=== PATIENT | male | born 1970 | race Caucasian/White ===

== ENCOUNTER 2016-09-16 19:31 | Emergency (ER) | payer OTHER ==
[2016-09-16] MEDS ORDERED: diazePAM 5 MG TABLET PO STA (19:49)
[2016-09-16] MEDS ORDERED: KETOROLAC 60 MG/2 ML VIAL IM STA (19:49)
--- NOTE | 2016-09-16 19:52 | ED Physician Documentation ---
PD HPI BACK INJURY - Stated complaint Stated Complaint: BACK PX - History obtained from History obtained from: Patient - History of Present Illness Type of injury: Other (He was sitting on the ground reaching for something today when his left paralumbar back muscle spasms. He has had this before. There is no radiation. No relief with Robaxin. No weakness, numbness, or tingling in the extremities, no saddle anesthesia, no fever, no incontinence.) Review of Systems Constitutional: denies: Fever, Chills GI: denies: Abdominal Pain, Nausea, Vomiting : denies: Frequency PD PAST MEDICAL HISTORY - Past Medical History Cardiovascular: None Respiratory: None Neuro: None Endocrine/Autoimmune: None GI: GERD : None HEENT: None Psych: Depression Musculoskeletal: Chronic back pain Derm: None - Past Surgical History Past Surgical History: Yes HEENT: Tonsil/Adenoidectomy - Present Medications Home Medications: Ambulatory Orders Medication Instructions Recorded Confirmed DULoxetine [Cymbalta] 60 mg PO DAILY 04/01/13 09/16/16 HYDROcod/ACETAM 5/325 [[place] 5/325] 1 - 2 ea PO Q6H PRN #15 tablet 09/16/16 - Allergies Allergies/Adverse Reactions: Allergies Allergy/AdvReac Type Severity Reaction Status Date / Time No Known Drug Allergies Allergy Verified 09/16/16 19:47 - Social History Does the pt smoke?: No Smoking Status: Never smoker Does the pt drink ETOH?: Yes Does the pt have substance abuse?: No - Immunizations Immunizations are current?: Yes - POLST Patient has POLST: No PD ED PE NORMAL - Vitals Vital signs reviewed: Yes - General General: Alert and oriented X 3, No acute distress - Neck Neck: Supple, no meningeal sign, No bony TTP - Abdomen Abdomen: Soft, Non tender - Back Back: Other (Tender with obvious spasm to the left paralumbar muscles without midline tenderness) - Extremities Extremities: Other (The patient has equal and normal Achilles and patellar reflexes bilaterally. Normal sensation in all areas of the legs. Patient denies saddle anesthesia. Normal strength in flexion-extension at the ankles, knees, and flexion of the hips.) - Neuro Neuro: Alert and oriented X 3, Normal speech Results - Vitals Vitals: Vital Signs - 24 hr 09/16/16 19:35 Temperature 36.6 C Heart Rate 71 Respiratory 20 Rate Blood Pressure 117/80 O2 Saturation 97 Oxygen O2 Source Room air PD MEDICAL DECISION MAKING - ED course ED course: This patient has seemingly uncomplicated musculoskeletal back pain. The patient has no "red flags." Specifically denies IV drug use, fevers, incontinence, saddle anesthesia. Spinal epidural abscess was considered, given that the patient has no fever, is not diabetic, has no spinal tenderness, does not use IV drugs, and has no bilateral neurologic symptoms, the diagnosis of spinal epidural abscess is considered exceedingly unlikely. The [place] prescription monitoring program was queried with regard to this patient. No concerning findings were found. Departure - Departure Disposition: Home, Self Care Clinical Impression: Back spasm, Strain of back muscle Condition: Good Record reviewed to determine appropriate education?: Yes Instructions: ED Low Back Pain Injury Prescriptions: HYDROcod/ACETAM 5/325 [[place] 5/325] 1 - 2 ea PO Q6H PRN #15 tablet PRN Reason: Pain Comments: Call your doctor to arrange a follow-up appointment, make the next available appointment. In the interim, return anytime if worse or if new symptoms develop. Do not drink or drive while taking narcotic pain medication. Note that many narcotic pain relievers also contain Tylenol/acetaminophen. Please ensure that your total dose of acetaminophen from all sources does not exceed 3 g (3000 mg) per day. You may get constipated while on this medication. Take a stool softener such as Colace twice a day while you are on it. Also add an [id number] laxative such as senna or MiraLAX on any day that you do not have a bowel movement. If you received a narcotic pain medication or sedative while in the emergency department, do not drive for the next 24 hours.
[2016-09-16] MEDS ORDERED: diazePAM 5 MG TABLET PO ONE (20:00)
[2016-09-16] MEDS ORDERED: KETOROLAC 60 MG/2 ML VIAL ONE (20:00)
[2016-09-16] MEDS ORDERED: HYDROcod/ACET 5/325 Prepack 6 PO STA (20:42)
[2016-09-16] MEDS ORDERED: HYDROcod/ACET 5/325 Prepack 6 PO ONE (20:47)
[2016-09-16 20:57] VITALS: BP 102/78
== END 2016-09-16 20:46 | disposition home or self-care (01) ==
LOC: ED 19:31
DX: S39.012A Strain of muscle, fascia and tendon of lower back, initial encounter (principal); X50.0XXA Overexertion from strenuous movement or load, initial encounter; M62.830 Muscle spasm of back
CPT/HCPCS: 96372; 99282; 99283; A9270

== ENCOUNTER 2017-03-16 22:01 | Emergency (ER) | payer OTHER ==
[2017-03-16] MEDS ORDERED: KETOROLAC 60 MG/2 ML VIAL IM STA (22:13)
[2017-03-16] MEDS ORDERED: CYCLOBENZAPRINE 10 MG TABLET PO STA (22:13)
[2017-03-16] MEDS ORDERED: DEXAMETHASONE 10 MG/ML VIAL PO STA (22:13)
[2017-03-16] MEDS ORDERED: oxyCODONE/ACET 5/325 Prepack 4 PO STA (22:13)
[2017-03-16] MEDS ORDERED: oxyCOD/ACETAMIN 5 MG/325 MG TABLET PO STA (22:13)
[2017-03-16] MEDS ORDERED: CYCLOBENZAPRINE 10 MG Prepack 2 PO STA (22:13)
--- NOTE | 2017-03-16 22:14 | ED Physician Documentation ---
PD HPI BACK PAIN - Stated complaint Stated Complaint: BACK PX - Chief complaint Chief Complaint: Back Pain - History obtained from History obtained from: Patient - History of Present Illness Timing - onset: Today Timing - details: Abrupt onset Location: Lower, Right Quality: Pain, Spasm, Similar to prior episodes Associated symptoms: No: Fever, Weakness, Incontinent of urine, Unable to urinate Improves with: Rest Worsened by: Movement, Lifting, Palpation Contributing factors: Lifting Similar symptoms before: Work up / diagnostics, Treatment Recently seen: Not recently seen - Additional information Additional information: Patient is a 45 year old male with a history of low back pain and muscle spasms who is presenting to the emergency department for low back pain. patient states that today he was lifting a box from [employer] and moving it around his garage and thats what set off his spasm. patient denies any trauma and reports that this is similar to other episodes. Review of Systems Constitutional: denies: Fever, Chills Eyes: reports: Reviewed and negative Ears: reports: Reviewed and negative Nose: reports: Reviewed and negative Throat: reports: Reviewed and negative Cardiac: reports: Reviewed and negative Respiratory: reports: Reviewed and negative GI: denies: Nausea, Vomiting : denies: Unable to Void, Incontinent Skin: denies: Rash, Lesions Musculoskeletal: reports: Back pain Neurologic: denies: Generalized weakness, Focal weakness, Numbness Immunocompromised: denies: Immunocompromised PD PAST MEDICAL HISTORY - Past Medical History Cardiovascular: None Respiratory: None Neuro: None Endocrine/Autoimmune: None GI: GERD : None HEENT: None Psych: Depression Musculoskeletal: Chronic back pain Derm: None - Past Surgical History Past Surgical History: Yes HEENT: Tonsil/Adenoidectomy - Present Medications Home Medications: Ambulatory Orders Medication Instructions Recorded Confirmed DULoxetine [Cymbalta] 60 mg PO DAILY 04/01/13 09/16/16 HYDROcod/ACETAM 5/325 [[place] 5/325] 1 - 2 ea PO Q6H PRN #15 tablet 09/16/16 Cyclobenzaprine [Flexeril] 10 mg PO TID PRN #10 tablet 03/16/17 - Allergies Allergies/Adverse Reactions: Allergies Allergy/AdvReac Type Severity Reaction Status Date / Time No Known Drug Allergies Allergy Verified 03/16/17 22:11 - Social History Does the pt smoke?: No Smoking Status: Never smoker Does the pt drink ETOH?: Yes Does the pt have substance abuse?: No - Immunizations Immunizations are current?: Yes - POLST Patient has POLST: No PD ED PE NORMAL - Vitals Vital signs reviewed: Yes - General General: Alert and oriented X 3 - HEENT HEENT: Atraumatic, PERRL - Neck Neck: Supple, no meningeal sign - Cardiac Cardiac: RRR - Respiratory Respiratory: No respiratory distress - Derm Derm: Normal color, No rash - Extremities Extremities: No deformity, Normal ROM s pain - Neuro Neuro: Alert and oriented X 3, No motor deficit, No sensory deficit, Normal speech - Psych Psych: Normal mood PD ED PE EXPANDED - General General: Alert, In Pain - Back Back: Soft tissue tenderness (tednerness to palpation of right lower paraspinal muscles) Results - Vitals Vitals: Vital Signs - 24 hr 03/16/17 03/16/17 22:10 23:00 Temperature 36.3 C L Heart Rate 60 56 L Respiratory 17 18 Rate Blood Pressure 145/100 H 134/62 H O2 Saturation 99 98 Oxygen O2 Source Room air PD MEDICAL DECISION MAKING - ED course Complexity details: reviewed old records, reviewed results, re-evaluated patient , considered differential, d/w patient ED course: Patient was seen and examined at bedside. Patient was well appearing and had no signs of spinal cord injury. Patient was treated with toradol, decadron, percocet and flexeril with good relief. patient required no further testing or inpatient work up and was stable for discharge with outpatient follow up. Departure - Departure Disposition: 01 Home, Self Care Clinical Impression: Strain of back muscle Condition: Good Instructions: ED Low Back Pain Injury Follow-Up: Jarad Francois MD [Primary Care Provider] - As Needed Prescriptions: Cyclobenzaprine [Flexeril] 10 mg PO TID PRN #10 tablet PRN Reason: Spasms Comments: Your symptoms today are being caused by a muscle spasm. You should take motrin and tylenol as needed for pain and the flexeril as needed for spasms. You can apply ice or heat. You should stay active and try stretching. You should follow up with your doctor as needed. You may return to the emergency department at any time for new, worsening or uncontrollable symptoms. Discharge Date/Time: 03/16/17 23:00
[2017-03-16 23:00] VITALS: BP 134/62
== END 2017-03-16 23:00 | disposition home or self-care (01) ==
LOC: ED 22:01
DX: S39.012A Strain of muscle, fascia and tendon of lower back, initial encounter (principal); X50.0XXA Overexertion from strenuous movement or load, initial encounter; Y92.015 Private garage of single-family (private) house as the place of occurrence of the external cause
CPT/HCPCS: 96372; 99283; A9270

== ENCOUNTER 2018-04-10 14:38 | Emergency (ER) | payer OTHER ==
[2018-04-10 14:47] VITALS: BP 134/89
--- NOTE | 2018-04-10 14:47 | ED Physician Documentation ---
PD HPI BACK PAIN - Stated complaint Stated Complaint: BACK PX - Chief complaint Chief Complaint: Back Pain - History obtained from History obtained from: Patient - History of Present Illness Timing - onset: Enter time (0), Today Timing - duration: Hours Timing - details: Abrupt onset, Still present Location: Lower, Right Quality: Pain, Spasm, Sharp, Similar to prior episodes Associated symptoms: No: Fever, Weakness, Numbness, Incontinent of urine, Unable to urinate, Hematuria, Incontinent of stool Improves with: Rest, Ice, Position Worsened by: Movement, Lifting, Twisting Contributing factors: Lifting, Twisting Similar symptoms before: Diagnosis (lumbar strain) Recently seen: Not recently seen - Additional information Additional information: 48-year-old male was at work today 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 He states the weight of the object is about 80 pounds and is a 2 man lift and he felt a strain in his right lower back when he went to do this. He has had strain in the similar area previously. He has no other specific complaints. He does not have numbness tingling or paresthesias.He has had these symptoms previously with strain and is done well with treatment. Review of Systems Constitutional: denies: Fever Eyes: denies: Decreased vision Ears: denies: Ear pain Nose: reports: Rhinorrhea / runny nose, Congestion Throat: denies: Sore throat Respiratory: denies: Cough GI: denies: Vomiting : denies: Dysuria Skin: denies: Rash Musculoskeletal: reports: Back pain. denies: Neck pain, Extremity pain Neurologic: denies: Generalized weakness, Focal weakness, Numbness PD PAST MEDICAL HISTORY - Past Medical History Cardiovascular: None Respiratory: None Endocrine/Autoimmune: None GI: GERD : None HEENT: None Psych: Depression Musculoskeletal: Chronic back pain Derm: None - Past Surgical History Past Surgical History: Yes HEENT: Tonsil/Adenoidectomy - Present Medications Home Medications: Ambulatory Orders Medication Instructions Recorded Confirmed DULoxetine [Cymbalta] 60 mg PO DAILY 04/01/13 04/10/18 Cyclobenzaprine [Flexeril] 10 mg PO TID PRN #20 tablet 04/10/18 Hydrocodone/Acetaminophen 1 - 2 each PO Q6H PRN #14 tablet 04/10/18 [Hydrocodon-Acetaminophen 5-325] - Allergies Allergies/Adverse Reactions: Allergies Allergy/AdvReac Type Severity Reaction Status Date / Time No Known Drug Allergies Allergy Verified 04/10/18 14:44 - Social History Does the pt smoke?: No Smoking Status: Never smoker Does the pt drink ETOH?: Yes Does the pt have substance abuse?: No - Immunizations Immunizations are current?: Yes - POLST Patient has POLST: No PD ED PE NORMAL - Vitals Vital signs reviewed: Yes (hypertensive ) - General General: Alert and oriented X 3, No acute distress, Well developed/nourished - HEENT HEENT: Atraumatic, PERRL, EOMI - Respiratory Respiratory: No respiratory distress - Back Back: No CVA TTP, No spinal TTP, Other (There is point tenderness to the lower lumbar spine on the right side. There is no midline tenderness. 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, No motor deficit, No sensory deficit, Normal speech Eye Opening: Spontaneous Motor: Obeys Commands Verbal: Oriented GCS Score: 15 - Psych Psych: Normal mood, Normal affect Results - Vitals Vitals: Vital Signs - 24 hr 04/10/18 14:43 Temperature 36.5 C Heart Rate 71 Respiratory 20 Rate Blood Pressure 134/89 H O2 Saturation 100 Oxygen O2 Source Room air PD MEDICAL DECISION MAKING - ED course Complexity details: reviewed old records, considered differential, d/w patient ED course: 48-year-old male with acute lumbar strain has right lower lumbar spasm and he is administered dexamethasone 10 mg orally and 60 mg of Toradol IM. We will put him back on Flexeril and Vicodin and give him light duty for 1 week. Departure - Departure Disposition: 01 Home, Self Care Clinical Impression: Strain of back muscle Condition: Stable Instructions: ED Low Back Pain Injury Follow-Up: JOSHUA FERRELL DO [Primary Care Provider] - Prescriptions: Cyclobenzaprine [Flexeril] 10 mg PO TID PRN #20 tablet PRN Reason: Spasms Hydrocodone/Acetaminophen [Hydrocodon-Acetaminophen 5-325] 1 - 2 each PO Q6H PRN #14 tablet PRN Reason: pain Forms: Activity restrictions
[2018-04-10] MEDS ORDERED: DEXAMETHASONE 10 MG/ML VIAL PO STA (14:52)
[2018-04-10] MEDS ORDERED: KETOROLAC 60 MG/2 ML VIAL IM STA (14:52)
== END 2018-04-10 15:29 | disposition home or self-care (01) ==
LOC: ED 14:38
DX: S39.012A Strain of muscle, fascia and tendon of lower back, initial encounter (principal); X50.0XXA Overexertion from strenuous movement or load, initial encounter; Y99.0 Civilian activity done for income or pay
CPT/HCPCS: 96372; 99283

== ENCOUNTER 2019-03-23 16:30 | Emergency (ER) | payer OTHER ==
[2019-03-23 16:37] VITALS: BP 146/95
[2019-03-23] MEDS ORDERED: KETOROLAC 60 MG/2 ML VIAL IM STA (16:50)
[2019-03-23] MEDS ORDERED: LIDOCAINE PATCH 5% TOP STA (16:50)
--- NOTE | 2019-03-23 16:52 | ED Physician Documentation ---
PD HPI BACK PAIN - Stated complaint Stated Complaint: BACK PX - Chief complaint Chief Complaint: Back Pain - History obtained from History obtained from: Patient - History of Present Illness Timing - onset: Today Timing - details: Abrupt onset Location: Lower, Left Quality: Pain Associated symptoms: No: Weakness, Numbness, Incontinent of urine, Incontinent of stool Improves with: Position Worsened by: Movement, Twisting Recently seen: Not recently seen - Additional information Additional information: This is a 48-year-old who has had prior use with his lower back was referred to a specialist in [place] who told him that surgery would probably be worse than what he is dealing with. Today he bent over to pull his socks on and the back just "locked up" it is in the left lower he feels better if he gets up and walks around but he took a Flexeril around 2:00 and the pain just not letting up. Is not going down his leg. He had no urinary incontinence. He did not take any of his Motrin at home. He denies abdominal pain or nausea. He did try his TENS unit at home as well. 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 Review of Systems : denies: Incontinent Musculoskeletal: reports: Back pain Neurologic: reports: Other (No pain radiating down the legs) PD PAST MEDICAL HISTORY - Past Medical History Past Medical History: Yes Cardiovascular: None Respiratory: None Endocrine/Autoimmune: None GI: GERD : None HEENT: None Psych: Depression Musculoskeletal: Chronic back pain Derm: None - Past Surgical History Past Surgical History: Yes HEENT: Tonsil/Adenoidectomy - Present Medications Home Medications: Ambulatory Orders Medication Instructions Recorded Confirmed DULoxetine [Cymbalta] 90 mg PO DAILY 04/01/13 04/10/18 Cyclobenzaprine [Flexeril] 10 mg PO TID PRN #20 tablet 04/10/18 Lidocaine Patch 5% [Lidoderm Patch] 1 each TOP DAILY #10 patch 03/23/19 - Allergies Allergies/Adverse Reactions: Allergies Allergy/AdvReac Type Severity Reaction Status Date / Time No Known Drug Allergies Allergy Verified 03/23/19 16:37 - Social History Does the pt smoke?: No Smoking Status: Never smoker Does the pt drink ETOH?: Yes Does the pt have substance abuse?: No - Immunizations Immunizations are current?: Yes - POLST Patient has POLST: No PD ED PE NORMAL - Vitals Vital signs reviewed: Yes - General General: Alert and oriented X 3, Well developed/nourished, Other (He looks uncomfortable sitting is kind of frequently changing position trying to stretch his back out.) - Respiratory Respiratory: No respiratory distress - Abdomen Abdomen: Normal bowel sounds, Soft - Derm Derm: Normal color, Warm and dry, No rash - Extremities Extremities: No edema - Neuro Neuro: Alert and oriented X 3, 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 He has intermittent episodes of pain. He is tried chiropractic treatments in the past that have not been helpful. We gave him an injection of Toradol here today and also put a lidocaine patch on. He will be given a work note to limit lifting to 10 pounds[place] Of encouraged him to restart the ibuprofen, he use the prescription for lidocaine patches if that is helping. He also has Flexeril and methocarbamol that he can take. Departure - Departure Disposition: 01 Home, Self Care Clinical Impression: Acute exacerbation of chronic low back pain Condition: Good Instructions: ED Back Care Tips, ED Sprain Strain Lumbar Follow-Up: JOSHUA FERRELL DO [Primary Care Provider] - Prescriptions: Lidocaine Patch 5% [Lidoderm Patch] 1 each TOP DAILY #10 patch Comments: Use your ibuprofen 800 mg every 8 hours with food. Trial the lidocaine patches to see if that offers any significant relief. Continue with the muscle relaxer Flexeril or methocarbamol if needed. Limit your lifting, twisting, squatting or stooping. Follow-up with your primary care provider for further pain management if you continue to have significant pain. Forms: Activity restrictions Discharge Date/Time: 03/23/19 17:14
== END 2019-03-23 17:14 | disposition home or self-care (01) ==
LOC: ED 16:30
DX: M54.5 Low back pain (principal); G89.29 Other chronic pain
CPT/HCPCS: 96372; 99283; 99284; A9270

== ENCOUNTER 2020-02-05 13:05 | Emergency (ER) | payer OTHER ==
--- NOTE | 2020-02-05 13:59 | ED Physician Documentation ---
History of Present Illness - Stated complaint Stated Complaint: RT SIDE RASH - Chief complaint Chief Complaint: Wound - History obtained from History obtained from: Patient - History of Present Illness Timing: How many days ago (3) - Additonal information Additional information: 49-year-old male presents emergency department with 3 days of a painful, burning, right sided vesicular rash on his abdomen. No recent fevers contact with similar. He does have a history of chickenpox as a child. Review of Systems Constitutional: reports: Reviewed and negative Ears: reports: Reviewed and negative Nose: reports: Reviewed and negative Throat: reports: Reviewed and negative Cardiac: reports: Reviewed and negative Respiratory: reports: Reviewed and negative GI: reports: Reviewed and negative : reports: Reviewed and negative Skin: reports: Rash Musculoskeletal: reports: Reviewed and negative PD PAST MEDICAL HISTORY - Past Medical History Past Medical History: Yes Cardiovascular: None Respiratory: None Endocrine/Autoimmune: None GI: GERD : None HEENT: None Psych: Depression Musculoskeletal: Chronic back pain Derm: None - Past Surgical History Past Surgical History: Yes HEENT: Tonsil/Adenoidectomy - Present Medications Home Medications: Ambulatory Orders Medication Instructions Recorded Confirmed DULoxetine [Cymbalta] 90 mg PO DAILY 04/01/13 04/10/18 Cyclobenzaprine [Flexeril] 10 mg PO TID PRN #20 tablet 04/10/18 Lidocaine Patch 5% [Lidoderm Patch] 1 each TOP DAILY #10 patch 03/23/19 Valacyclovir HCl [Valtrex] 1,000 mg PO TID #21 tablet 02/05/20 - Allergies Allergies/Adverse Reactions: Allergies Allergy/AdvReac Type Severity Reaction Status Date / Time No Known Drug Allergies Allergy Verified 02/05/20 13:17 - Social History Does the pt smoke?: No Smoking Status: Never smoker Does the pt drink ETOH?: Yes Does the pt have substance abuse?: No - Immunizations Immunizations are current?: Yes - POLST Patient has POLST: No PD ED PE EXPANDED - General General: Alert, No acute distress, Well developed/nourished - Cardiac Cardiac: Regular Rate, Regular Rhythm, Radial strong equal, Cap refill < 2 sec - Respiratory Respiratory: Clear to ausultation laurie. No: Distress, Labored - Derm Derm: Vesicles (Clustered vesicles right side of abdomen does not cross midline. T9 dermatome.) Results - Vitals Vitals: Vital Signs - 24 hr 02/05/20 13:09 Temperature 36.8 C Heart Rate 85 Respiratory 17 Rate Blood Pressure 154/53 H O2 Saturation 98 Oxygen O2 Source Room air PD MEDICAL DECISION MAKING - ED course Complexity details: reviewed results ED course: 49-year-old male presents the emergency department for evaluation of 3 days of right-sided painful vesicular rash consistent with shingles. He will be placed on valacyclovir. Pain is well tolerated at this time we will not initiate gabapentin or Neurontin. Routine care avoidance of transfer of infection discussed. Patient will follow up with [facility] Departure - Departure Disposition: Home, Self Care Clinical Impression: Shingles outbreak Qualifiers: Herpes zoster complications: without complications Qualified Code(s): B02.9 - Zoster without complications Condition: Stable Record reviewed to determine appropriate education?: Yes Instructions: ED Shingles Prescriptions: Valacyclovir HCl [Valtrex] 1,000 mg PO TID #21 tablet Comments: The rash in your abdomen is consistent with shingles or varicella infection. This is common in adults who have had chickenpox as a child. Once this outbreak goes away you can get the shingles vaccine through your primary care provider to prevent a recurrence of this. In the short-term I would like you to start taking the valacyclovir 3 times daily for the next week. Shingles is considered contagious until fully crusted or scabbed over. This typically takes 1 to 2 weeks. Avoid scratching or rubbing the blisters as you can transfer infection elsewhere like the eyes or face.
[2020-02-05 14:06] VITALS: BP 148/60
== END 2020-02-05 14:05 | disposition home or self-care (01) ==
LOC: ED 13:05
DX: B02.9 Zoster without complications (principal)
CPT/HCPCS: 99282; 99283

== ENCOUNTER 2020-07-03 21:25 | Emergency (ER) | payer OTHER ==
--- NOTE | 2020-07-03 21:52 | ED Physician Documentation ---
PD HPI LOWER EXT INJURY - Stated complaint Stated Complaint: RT ANKLE INJ - Chief complaint Chief Complaint: Trauma Ext - History obtained from History obtained from: Patient - History of Present Illness PD HPI LOW EXT INJURY LOCATION: Right, Ankle Type of injury: Fall Where injury occurred: Other (rollerbarn) Timing - onset: Enter time (1929), Today Timing - duration: Minutes Timing - details: Abrupt onset, Still present Improved by: Rest, Immobilization Worsened by: Moving, Palpating Associated symptoms: Swelling Contributing factors: No: Anticoagulated, Prior ortho surgery Similar symptoms before: Diagnosis (ankle sprain this seems worse) Recently seen: Not recently seen - Additional information Additional information: 50-year-old male was rollerskating in the roller bar with his daughter when he slipped backwards and fell when he did he twisted his ankle and he heard a loud crack. He knew when this happened that his ankle was broken and he has been unable to bear weight on it since. Comes to the emergency department today with a fractured ankle that happened at about 7:30 PM. Review of Systems Constitutional: denies: Fever Nose: denies: Congestion Throat: denies: Sore throat Cardiac: denies: Chest pain / pressure Respiratory: denies: Dyspnea, Cough, Wheezing GI: reports: Nausea (with the pain). denies: Vomiting Skin: denies: Rash Musculoskeletal: reports: Extremity pain, Joint pain, Joint swelling, Pain with weight bearing. denies: Neck pain, Back pain Neurologic: denies: Generalized weakness, Focal weakness, Numbness PD PAST MEDICAL HISTORY - Past Medical History Past Medical History: Yes Cardiovascular: None Respiratory: None Endocrine/Autoimmune: None GI: GERD : None HEENT: None Psych: Depression Musculoskeletal: Chronic back pain Derm: None - Past Surgical History Past Surgical History: Yes HEENT: Tonsil/Adenoidectomy - Present Medications Home Medications: Ambulatory Orders Medication Instructions Recorded Confirmed DULoxetine [Cymbalta] 90 mg PO DAILY 04/01/13 07/03/20 Escitalopram [Lexapro] 5 mg PO BID 07/03/20 07/03/20 HYDROcod/ACETAM 5/325 [[place] 5/325] 1 - 2 tablet PO Q6H PRN #14 tablet 07/03/20 - Allergies Allergies/Adverse Reactions: Allergies Allergy/AdvReac Type Severity Reaction Status Date / Time No Known Drug Allergies Allergy Verified 07/03/20 21:33 - Social History Does the pt smoke?: No Smoking Status: Never smoker Does the pt drink ETOH?: Yes Does the pt have substance abuse?: No - Immunizations Immunizations are current?: Yes - POLST Patient has POLST: No PD ED PE NORMAL - Vitals Vital signs reviewed: Yes (hpyertensive mild) - General General: Alert and oriented X 3, No acute distress, Well developed/nourished - HEENT HEENT: Atraumatic, PERRL, EOMI - Respiratory Respiratory: No respiratory distress - Derm Derm: Normal color, Warm and dry, No rash - Extremities Extremities: Other (swellling and tenderness medial and posterior. 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 Acute bimalleolar ankle fracture involving the medial and posterior malleolus. Medial clear space is not widened. 2. Medial ankle swelling with small ankle effusion.), EMP read indepedently, See rad report Procedures - Splint (location) right ankle Splint applied by: Tech Type of splint: Fiberglass, Posterior, Stirrup Other: Patient tolerated well, No complications, Neurovascular intact, Good alignment, Crutches provided PD MEDICAL DECISION MAKING - ED course Complexity details: reviewed old records, reviewed results, re-evaluated patient, considered differential, d/w patient, d/w family ED course: 50-year-old male with a rollerskating injury has fractured his right ankle. He has a bimalleolar fracture without much displacement and he does not have shift of the mortise. He is placed into a posterior splint with a stirrup and placed onto crutches. He is given a note for 5 days and instructed to follow-up with orthopedics. His pain is controlled in the emergency department with an injection of Dilaudid 1 mg IM and 4 mg of Zofran sublingual. This provides excellent pain control for the patient to have a splint placed. Departure - Departure Disposition: 01 Home, Self Care Clinical Impression: Bimalleolar fracture of right ankle Qualifiers: Encounter type: initial encounter Fracture type: closed Qualified Code(s): S82.841A - Displaced bimalleolar fracture of right lower leg, initial encounter for closed fracture Condition: Stable Instructions: ED Fx Ankle General Follow-Up: Bunny Mi MD [Provider Admit Priv/Credential] - Prescriptions: HYDROcod/ACETAM 5/325 [[place] 5/325] 1 - 2 tablet PO Q6H PRN #14 tablet PRN Reason: Pain Forms: Activity restrictions Discharge Date/Time: 07/03/20 22:57
[2020-07-03] MEDS ORDERED: ONDANSETRON ODT 4 MG TABLET TL STA (22:04)
[2020-07-03] MEDS ORDERED: HYDROmorphone 1 MG/ML CARPUJECT IM STA (22:04)
[2020-07-03] MEDS ORDERED: HYDROcod/ACET 5/325 Prepack 4 PO STA (22:39)
[2020-07-03 22:46] VITALS: BP 145/109
--- NOTE | 2020-07-03 23:11 | XRAY Report ---
PROCEDURE: Ankle 3 View RT INDICATIONS: injury R ankle/rolled/twisted from roller skating TECHNIQUE: 3 views of the ankle were acquired. COMPARISON: None FINDINGS: Bones: There is a mildly to moderately displaced medial malleolar fracture, with intra-articular invo lvement. There is a moderately displaced posterior malleolar fracture. The distal fibula and lateral malleolus do not appear fractured. The talar dome demonstrates an unremarkable appearance. Ankle mortise is normally aligned. No krystal picious bony lesions. Age-appropriate degenerative changes are seen. Plantar and Achilles calcaneal spurs are seen. Soft tissues: Soft tissue swelling is seen, with a joint effusion. IMPRESSION: Medial malleolar fracture and posterior malleolar fracture. Associated soft tissue swelling, with a joint effusion seen. Note: No significant discrepancy from the preliminary report. Reviewed by: Morro Recinos MD on 07/03/2020 10:10 PM DANIA Approved by: Morro Recinos MD on 07/03/2020 10:10 PM DANIA Station ID: [id number]
== END 2020-07-03 22:57 | disposition home or self-care (01) ==
LOC: ED 21:25
DX: S82.841A Displaced bimalleolar fracture of right lower leg, initial encounter for closed fracture (principal); V00.121A Fall from non-in-line roller-skates, initial encounter; Y93.51 Activity, roller skating (inline) and skateboarding; Y92.331 Roller skating rink as the place of occurrence of the external cause
CPT/HCPCS: 29515; 73610; 96372; 99283; 99284; J1170; Q0162

== ENCOUNTER 2020-07-08 09:16 | Outpatient (CLI) | payer OTHER ==
--- NOTE | 2020-07-08 10:09 | XRAY Report ---
PROCEDURE: Tib/Fib RT INDICATIONS: DISPLACED FRACTURE OF RIGHT LOWER LEG TECHNIQUE: 2 views of the tibia and fibula were acquired. COMPARISON: 07/03/2020 x-ray examination. FINDINGS: Bones: Mildly displaced oblique fracture proximal fibula. Mildly displaced posterior malleolus fractu re. Mildly displaced medial malleolar fracture. No suspicious bony lesions. Soft tissues: No suspicious soft tissue calcifications or masses. IMPRESSION: 1. Proximal fibular fracture. 2. Posterior and medial malleoli fracture. Reviewed by: Jaz Crawford MD on 07/08/2020 10:08 AM PDT Approved by: Jaz Crawford MD on 07/08/2020 10:08 AM PDT Station ID: [id number]
== END 2020-07-08 23:59 | disposition home or self-care (01) ==
LOC: DI.N 09:16
PROVIDERS: ATTEND Orthopaedic Surgery
DX: S82.851A Displaced trimalleolar fracture of right lower leg, initial encounter for closed fracture (principal); S82.831A Other fracture of upper and lower end of right fibula, initial encounter for closed fracture

== ENCOUNTER 2020-07-13 13:02 | Outpatient (CLI) | payer OTHER ==
--- NOTE | 2020-07-13 15:33 | XRAY Report ---
PROCEDURE: Ankle 3 View RT INDICATIONS: DISPLACED FX RIGHT ANKLE TECHNIQUE: 3 views of the ankle were acquired. COMPARISON: Plain films dated 07/03/2020 FINDINGS: Bones: There is improved alignment of the medial and posterior malleolar ankle fractures. Ankle morti se is normally aligned. No suspicious bony lesions. Soft tissues: No tibiotalar joint effusion. Achilles tendon appears normal. IMPRESSION: Improved alignment of bimalleolar ankle fractures. Reviewed by: Jaz Crawford MD on 07/13/2020 3:31 PM PDT Approved by: Jaz Crawford MD on 07/13/2020 3:31 PM PDT Station ID: [id number]
== END 2020-07-13 23:59 | disposition home or self-care (01) ==
LOC: DI.N 13:02
PROVIDERS: ATTEND Orthopaedic Surgery
DX: S82.841A Displaced bimalleolar fracture of right lower leg, initial encounter for closed fracture (principal)

== ENCOUNTER 2020-07-15 11:14 | Day surgery (SDC) | payer OTHER ==
--- OUTSIDE RECORDS SUMMARY | 2020-07-15 11:16 | EXTERNAL MEDICAL SUMMARY RPT | Continuity of Care Document ---
:1970 Demographics Phone Unavailable Preferred Language Unknown Marital Status Unknown Gnosticist Affiliation Unknown Race Unknown Ethnic Group Unknown Author Organization [facility] Address [address] [id number] Phone Allergies Encounters Medications Problems Results
[2020-07-15] MEDS ORDERED: GABAPENTIN 400 MG CAPSULE ONE (11:26)
[2020-07-15] MEDS ORDERED: ceFAZolin 2 GM/50 ML 2 GM/50 ML BAG IV ONE (11:27)
[2020-07-15] MEDS ORDERED: ACETAMINOPHEN 1,000 MG/100 ML 100 ML IV ONE (11:27)
[2020-07-15] MEDS ORDERED: CELECOXIB 100 MG CAPSULE PO ONE (11:27)
--- NOTE | 2020-07-15 12:08 | ANESTHESIA ---
Pre-Anesthesia VS, & Labs - Diagnosis right ankle fracture - Procedure ORIF right ankle fracture Vital Signs: Temp Pulse Resp BP Pulse Ox 36.8 C 85 16 153/96 H 100 07/15/20 11:30 07/15/20 11:30 07/15/20 11:30 07/15/20 11:30 07/15/20 11:30 Height: 6 ft Weight (kg): 87.5 kg Body Mass Index: 26.2 BMI Classification: Overweight - NPO >8 hours - Lab Results Current Lab Results: Laboratory Tests 07/15/20 11:49: POC Whole Bld Glucose 84 Home Medications and Allergies Home Medications: Ambulatory Orders Cetirizine [ZyrTEC] 10 mg PO PRN PRN 07/14/20 Meloxicam [Mobic] 1 tablet PO DAILY PRN 07/14/20 DULoxetine [Cymbalta] 90 mg PO DAILY 04/01/13 Escitalopram [Lexapro] 10 mg PO BID 07/03/20 Cetirizine [ZyrTEC] 10 mg PO PRN PRN 07/14/20 Meloxicam [Mobic] 1 tablet PO DAILY PRN 07/14/20 Allergies/Adverse Reactions: Allergies Allergy/AdvReac Type Severity Reaction Status Date / Time No Known Drug Allergies Allergy Verified 07/03/20 21:33 Anes History & Medical History - Anesthetic History Anesthesia Complications: reports: No previous complications - Medical History Cardiovascular: reports: None Pulmonary: reports: None Gastrointestinal: reports: None Urinary: reports: None Musculoskeletal: reports: Chronic back pain Endocrine/Autoimmune: reports: None Blood Disorders: reports: None Skin: reports: None Smoking Status: Never smoker History of Cancer?: No - Surgical History General: reports: Other Eyes Ears Nose Throat (EENT): reports: Tonsil/Adenoidectomy Exam General: Alert, Oriented x3 Dental: WNL Mouth Opening: Can't Open Mouth Neck Mobility: Normal Mallampati classification: II Thyromental Distance: greater than 6 cm Respiratory: Lungs clear Cardiovascular: Regular rate Plan Anesthesia Type: General Consent for Procedure(s) Verified and Reviewed: Yes Code Status: Attempt Resuscitation ASA classification: 1-Healthy patient Is this case an emergency?: No
[2020-07-15] MEDS ORDERED: MORPHINE 2 MG/ML CARPUJECT IVP PRN (12:13)
[2020-07-15] MEDS ORDERED: ONDANSETRON 4 MG/2 ML VIAL IVP PRN (12:13)
[2020-07-15] MEDS ORDERED: NALOXONE 0.4 MG/ML VIAL IVP PRN (12:13)
[2020-07-15] MEDS ORDERED: METOCLOPRAMIDE 10 MG/2 ML VIAL IVP PRN (12:13)
[2020-07-15] MEDS ORDERED: ATROPINE ABBOJECT 1 MG/10 ML SYRINGE IVP PRN (12:13)
[2020-07-15] MEDS ORDERED: fentaNYL 100 MCG/2 ML VIAL IVP PRN (12:13)
[2020-07-15] MEDS ORDERED: ePHEDrine 50 MG/ML VIAL IVP PRN (12:13)
[2020-07-15] MEDS ORDERED: BACITRACIN ZINC OINT 1 PACKET TOP ONE (12:20)
[2020-07-15] MEDS ORDERED: BUPIVACAINE 0.5%-EPI 1:200000 PF 30 ML VIAL ONE (12:21)
[2020-07-15] MEDS ORDERED: LIDOCAINE-MPF 2% 5 ML VIAL ONE (12:25)
[2020-07-15] MEDS ORDERED: PROPOFOL 200 MG/20 ML VIAL IVP ONE (12:25)
[2020-07-15] MEDS ORDERED: DEXAMETHASONE 4 MG/ML VIAL ONE (12:25)
[2020-07-15] MEDS ORDERED: ONDANSETRON 4 MG/2 ML VIAL ONE (12:25)
[2020-07-15] MEDS ORDERED: ROPIVACAINE 0.5% PF 20 ML AMPULE ONE (12:25)
[2020-07-15] MEDS ORDERED: MIDAZOLAM 2 MG/2 ML VIAL ONE (12:27)
[2020-07-15 12:51] LABS: B. PARAPERTUSSIS- RESP PCR PAN NOT DETECTED; B. PERTUSSIS- RESP PCR PANEL NOT DETECTED; C. PNEUMONIAE- RESP PCR PANEL NOT DETECTED; CORONAVIRUS 229E-RESP PCR NOT DETECTED; CORONAVIRUS HKU1-RESP PCR NOT DETECTED; CORONAVIRUS NL63-RESP PCR NOT DETECTED; CORONAVIRUS OC43-RESP PCR NOT DETECTED; HUMAN METAPNEUMOVIRUS NOT DETECTED; INFLUENZA A- RESP PCR PANEL NOT DETECTED; INFLUENZA B - RESP PCR PANEL NOT DETECTED; M. PNEUMONIAE- RESP PCR PANEL NOT DETECTED; PARAINFLUENZA VIRUS 1 NOT DETECTED; PARAINFLUENZA VIRUS 2 NOT DETECTED; PARAINFLUENZA VIRUS 3 NOT DETECTED; PARAINFLUENZA VIRUS 4 NOT DETECTED; RHINOVIRUS/ENTEROVIRUS NOT DETECTED; RSV- RESP PCR PANEL NOT DETECTED; SARS-CoV-2 -RESP PCR PANEL NOT DETECTED
[2020-07-15] MEDS ORDERED: LACTATED RINGERS 1,000 ML IV SCH (13:00)
[2020-07-15] MEDS ORDERED: fentaNYL 100 MCG/2 ML VIAL ONE ×2 (13:24→15:05)
[2020-07-15] MEDS ORDERED: VANCOMYCIN 1 GM VIAL ONE (13:26)
[2020-07-15] MEDS ORDERED: KETAMINE 500 MG/10 ML VIAL ONE (13:38)
--- NOTE | 2020-07-15 14:40 | OPERATIVE REPORT ---
Operative Report - General Procedure Date: 07/15/20 Planned Procedure: Open reduction internal fixation right ankle Pre-Op Diagnosis: Maisonneuve trimalleolar fracture right ankle Procedure Performed: Open reduction internal fixation medial malleolus right ankle Post Op Diagnosis: Same as preoperative diagnosis - Procedure Note Primary Surgeon: Bunny Mi MD Anesthesia Provider: Tanya Mcfarlane CRNA Anesthesia Technique: General ET tube, Regional block Estimated Blood Loss (mL): 5 Indications: This is a relatively active 50-year-old man sustained a rollerskating injury to right ankle. He sustained isolated injury to right ankle and lower leg. He had a Maisonneuve fracture of the right ankle with proximal fibular fracture; minimally displaced. Nondisplaced posterior malleolar fracture with a displaced fracture of the medial malleolus at the joint line. The syndesmosis appeared to be intact distally. Findings: There was a displaced intra-articular fracture of the medial malleolus, small cartilaginous fragment within the joint that was extricated. The fracture of the medial malleolus was transverse. When the syndesmosis was tested with push pull and external rotation, the syndesmosis appeared to be stable as well as the medial clear space opening. The posterior malleolar fracture aligned very well and was small in size. Complications: None - Other Other Information/Narrative: The patient was brought to the operating room and given a general endotracheal anesthetic.A rolled towel was placed beneath the right buttock. The right leg was placed on a foam bolster. A pneumatic tourniquet was applied to the proximal right thigh. The right lower extremity was prepped and draped in sterile manner in the usual fashion. A timeout procedure was performed by the entire operating room team and all were in agreement. The right leg was exsanguinated by elevation and pneumatic tourniquet was elevated to 250 mmHg. A longitudinal incision was made over the medial malleolus. The fracture hematoma was identified and evacuated as well as a cartilage fragment from the ankle joint measuring approximately 3 to 4 mm in length by half a millimeter in width. The ankle joint was thoroughly irrigated as the talus could be visualized through the fracture site. The fracture hematoma was completely removed. The fracture was reduced with dorsiflexion and the use of a pointed bone clamp. The proximal portion of the clamp was placed in a 2.0 hole made by 2.0 drill bit. The 4.0 mm Arthrex cannulated screw set was utilized. The K wire was inserted across the fracture, cannulated drill and then a 60 mm cancellous lag screw was inserted with good fixation of the fracture. The fracture was stressed after screw fixation and was stable. The C arm which had a sterile drape was used to provide biplanar imaging and this shows satisfactory alignment of the ankle mortise and medial malleolar fracture and its fixation with 4.0 screw. Stress test was done with external rotation and the ankle mortise was stable as well the syndesmosis. A push test was performed manually to the lateral malleolar area and there was no change in the syndesmosis width.The ankle was thoroughly irrigated. The subcutaneous tissue was closed with 2 oh strata fix. The skin of the medial malleolus was closed with daysi, stainless steel. Xeroform, dry sterile dressing and a well-padded fiberglass sugar tong splint was applied to the right lower leg. He received 2 g of Ancef, tolerated procedure well. The tourniquet time was approximately 42 minutes with good return of circulation.
[2020-07-15] MEDS ORDERED: LACTATED RINGERS 1,000 ML IV ONE (14:41)
[2020-07-15] MEDS: HYDROmorphone 0.5 MG/0.5 ML SYRINGE IVP PRN ×4 (14:48→15:29)
[2020-07-15] MEDS ORDERED: HYDROmorphone 0.5 MG/0.5 ML SYRINGE ONE ×2 (14:48→14:56)
[2020-07-15] MEDS ORDERED: oxyCODONE 5 MG TABLET PO PRN (14:48)
[2020-07-15] MEDS: fentaNYL 100 MCG/2 ML VIAL ONE ×2 (15:04→15:10)
[2020-07-15] MEDS ORDERED: HYDROmorphone 1 MG/ML CARPUJECT ONE (15:19)
[2020-07-15] MEDS ORDERED: oxyCODONE 5 MG TABLET ONE (15:44)
--- NOTE | 2020-07-15 16:21 | ANESTHESIA POST OP EVALUATION ---
Anesthesia Post Eval - Post Anesthesia Eval Vitals: Last Vital Signs Temp 36.7 C 07/15/20 15:41 Pulse 66 07/15/20 16:10 Resp 16 07/15/20 16:10 BP 157/109 H 07/15/20 16:10 Pulse Ox 99 07/15/20 16:10 CV Function Including HR & BP: Stable Pain Control: Satisfactory, Additional Therapies Ordered (I believe popliteal block to be suboptimal, pain managed with opioids in PACU) Nausea & Vomiting: Negative Mental Status: Baseline Respiratory Status: Airway Patent Hydration Status: Satisfactory Anesthesia Complications: None
[2020-07-15 16:40] VITALS: BP 148/102
--- NOTE | 2020-07-16 10:47 | XRAY Report ---
PROCEDURE: OR C-Arm Procedure INDICATIONS: FX ANKLE TECHNIQUE: 2 postoperative views utilizing digital radiography. COMPARISON: Prior acute trauma ankle plain films 07/13/2020 reviewed.. FINDINGS: A long cancellous screw has been placed spanning the fracture across the medial malleolus, establishi ng apposition of the fracture margins at the base of the medial malleolus in virtual anatomic alignme nt. IMPRESSION: ORIF of medial malleolar fracture across its base, normal alignment established for healing. Reviewed by: Virgilio New MD on 07/16/2020 9:46 AM DANIA Approved by: Virgilio New MD on 07/16/2020 9:46 AM DANIA Station ID: [id number]
== END 2020-07-15 11:15 | disposition home or self-care (01) ==
LOC: SDS 11:14
PROVIDERS: ATTEND Orthopaedic Surgery
DX: S82.851A Displaced trimalleolar fracture of right lower leg, initial encounter for closed fracture (principal); Z20.822 Contact with and (suspected) exposure to COVID-19; E66.3 Overweight; Z68.26 Body mass index [BMI] 26.0-26.9, adult
CPT/HCPCS: 0202U; 27822; A9270; J0131; J0690; J1170; J7120

== ENCOUNTER 2020-09-07 18:40 | Outpatient (CLI) | payer OTHER ==
--- NOTE | 2020-09-07 17:38 | XRAY Report ---
PROCEDURE: Ankle 3 View RT INDICATIONS: DISPLACED BIMALLEOLAR FX OF R LOWER LEG TECHNIQUE: 3 views of the ankle were acquired. COMPARISON: Prior ankle series dated 07/13/2020 FINDINGS: Bones: Improved alignment status post ORIF of medial malleolar fracture. Placement of single fixation screw in expected position.. Ankle mortise is normally aligned. No suspicious bony lesions. Soft tissues: No tibiotalar joint effusion. Achilles tendon appears normal. IMPRESSION: Improved alignment status post ORIF of medial malleolar fracture. Reviewed by: FIDEL Espitia on 09/07/2020 5:37 PM PDT Approved by: Virgilio New MD on 09/07/2020 5:37 PM PDT Station ID: [id number]
== END 2020-09-07 23:59 | disposition home or self-care (01) ==
LOC: DI.N 18:40
PROVIDERS: ATTEND Orthopaedic Surgery
DX: S82.841A Displaced bimalleolar fracture of right lower leg, initial encounter for closed fracture (principal)

== ENCOUNTER 2021-03-12 20:02 | Emergency (ER) | payer OTHER ==
[2021-03-12 20:14] VITALS: BP 138/92
[2021-03-12] MEDS ORDERED: KETOROLAC 60 MG/2 ML VIAL IM STA (20:22)
[2021-03-12] MEDS ORDERED: BUPIVACAINE 0.5%-EPI 1:200000 PF 30 ML VIAL SUBQ ONE (20:23)
--- NOTE | 2021-03-12 20:24 | ED Physician Documentation ---
PD HPI MAJOR TRAUMA - Stated complaint Stated Complaint: FALL DOWN STAIRS - Chief complaint Chief Complaint: Trauma Ch/Bk - History obtained from History obtained from: Patient - Additional information Additional information: 50-year-old with chronic back pain, he slipped and landed on his leg going down the stairs and exacerbated his chronic back pain. It is in the usual spot which is in the right paralumbar musculature. No other injuries. Review of Systems Constitutional: denies: Fever, Chills Cardiac: denies: Chest pain / pressure, Palpitations Respiratory: denies: Dyspnea, Cough PD PAST MEDICAL HISTORY - Past Medical History Cardiovascular: None Respiratory: None Endocrine/Autoimmune: None GI: None : None HEENT: None Psych: Depression, Anxiety Musculoskeletal: Chronic back pain Derm: None - Past Surgical History Past Surgical History: Yes General: Other HEENT: Tonsil/Adenoidectomy - Present Medications Home Medications: Ambulatory Orders Medication Instructions Recorded Confirmed DULoxetine [Cymbalta] 90 mg PO DAILY 04/01/13 07/14/20 Escitalopram [Lexapro] 10 mg PO BID 07/03/20 07/14/20 HYDROcod/ACETAM 5/325 [[place] 5/325] 1 - 2 tablet PO Q6H PRN #14 tablet 07/03/20 07/14/20 Cetirizine [ZyrTEC] 10 mg PO PRN PRN 07/14/20 07/14/20 Meloxicam [Mobic] 1 tablet PO DAILY PRN 07/14/20 07/14/20 HYDROcod/ACETAM 5/325 [[place] 5/325] 1 - 2 tab PO Q6H PRN #15 tablet 03/12/21 - Allergies Allergies/Adverse Reactions: Allergies Allergy/AdvReac Type Severity Reaction Status Date / Time No Known Drug Allergies Allergy Verified 03/12/21 20:14 - Social History Does the pt smoke?: No Smoking Status: Never smoker Does the pt drink ETOH?: Yes Does the pt have substance abuse?: No - Immunizations Immunizations are current?: Yes - POLST Patient has POLST: No PD ED PE NORMAL - Vitals Vital signs reviewed: Yes - General General: Alert and oriented X 3, Other (Winces with motion, comfortable at rest) - Back Back: Other (No midline spinal tenderness. He does have significant muscular tenderness over the right paralumbar muscles. No ecchymosis.) - Derm Derm: Normal color, Warm and dry - Extremities Extremities: Other (The patient has equal and normal Achilles and patellar reflexes bilaterally. Normal sensation in all areas of the legs. Patient denies saddle anesthesia. Normal strength in flexion-extension at the ankles, knees, and flexion of the hips.) - Neuro Neuro: Alert and oriented X 3, Normal speech Results - Vitals Vitals: Vital Signs - 24 hr 03/12/21 20:10 Temperature 36.2 C L Heart Rate 65 Respiratory 18 Rate Blood Pressure 138/92 H O2 Saturation 99 Oxygen O2 Source Room air Procedures - General procedure General procedure: Trigger point injection was done in the right lower back with 8 mL of 0.5% Marcaine after alcohol prep. Departure - Departure Disposition: Home, Self Care Clinical Impression: Back spasm, Acute exacerbation of chronic low back pain Condition: Good Record reviewed to determine appropriate education?: Yes Instructions: ED Contusion Back Prescriptions: HYDROcod/ACETAM 5/325 [[place] 5/325] 1 - 2 tab PO Q6H PRN #15 tablet PRN Reason: Pain Comments: I sent your prescription electronically to [facility] in [place]. Call your doctor to arrange a follow-up appointment, make the next available appointment. In the interim, return anytime if worse or if new symptoms develop. I am prescribing a short course of narcotic pain medication for you. These are potentially dangerous and addictive medications that should be used carefully. These medications may constipate you. Take an [id number] stool softener (docusate) twice daily with plenty of water while taking these medications. If you go 24 hours without a bowel movement, take [id number] miralax, per package instructions. Do not drink or drive while taking these medications. If you received narcotic or sedating medications while in the emergency department, do not drive for 24 hours. Store this medication in a safe, secure place and out of reach of children. It is a violation of federal law to give or sell this medication to another person or to use in a manner other than prescribed. The ED will not refill narcotic prescriptions, including prescriptions lost or stolen. To dispose of unwanted medications: 1. [facility] [address] in [place] has a medication drop box. They accept prescription medications (in pill form) Sunday through Sunday 9:00 a.m. to 5:00 p.m. 2. The [facility] accepts prescription medications (in pill form only) for disposal year round. Call for more information. 3. Contact the [facility] for the next [facility] sponsored prescription drug collection event. , [phone], or [phone]; Note that many narcotic pain relievers also contain Tylenol/acetaminophen. Please ensure that your total dose of acetaminophen from all sources does not exceed 3 g (3000 mg) per day.
[2021-03-12] MEDS ORDERED: HYDROcod/ACET 5/325 Prepack 4 PO STA (20:32)
[2021-03-12] MEDS ORDERED: BUPIVACAINE 0.5% PF 10 ML VIAL ONE (20:34)
== END 2021-03-12 20:57 | disposition home or self-care (01) ==
LOC: ED 20:02
DX: M62.830 Muscle spasm of back (principal); M54.50 Low back pain, unspecified; G89.29 Other chronic pain; W10.9XXA Fall (on) (from) unspecified stairs and steps, initial encounter
CPT/HCPCS: 20552; 99283